=== PATIENT | male | born 1940 | race Caucasian/White ===

== ENCOUNTER → 2019-05-10 | Outpatient (CLI) | payer OTHER ==
[~2019-05-10] MED LIST: ASPIRIN325 PO; CALCIUM 600 MG1 EAC3 PO; CENTRUM SILVER1 EAC1 PO; COLACE100 MG PO; MOBIC15 MG PO; NORCO 5-325 TA1 EACH PO; OSTEO BI-FLEX1 EACH PO; ROXICODONE5 M1 PO; VITAMIN B-12250 MC2 PO; XARELTO10 M1 PO; [UNRECOGNIZED DRUG - OTHER] PO; [UNRECOGNIZED DRUG - OTHER] PO; [UNRECOGNIZED DRUG - REMARK] PO
== END ==
LOC: M.RAD 12:41
DX: N62 Hypertrophy of breast (principal); N63.20 Unspecified lump in the left breast, unspecified quadrant